=== PATIENT | male | born 1965 | race Caucasian/White ===

== ENCOUNTER 2022-12-09 07:52 | Outpatient (OUT) | payer OTHER, SELFPAY ==
--- NOTE | 2022-12-09 08:02 | XR_ITS ---
The [address] [address] Patient Name: RAMON SPRINGER MRN: [id number] date: 1965 Sex: M Assigned Patient Location: [facility] Current Patient Location: [facility] Accession/Order Number: [id number] Exam Date: 12/09/2022 08:54 Report Date: 12/09/2022 09:17 At the request of: ROSHAN MERAZ Procedure: XR chest 2V EXAM: XR chest 2V HISTORY: PRE OP EXAM COMPARISON: None. TECHNIQUE: PA and lateral views of the chest. FINDINGS: The cardiomediastinal silhouette is normal. No focal consolidation is identified. There is no pneumothorax. No pleural effusion is noted. The osseous structures are intact. XR/XR chest 2V IMPRESSION: No acute cardiopulmonary process. Electronically authenticated by: NATALIA BAKER Date: 12/09/2022 09:17
--- NOTE | 2022-12-09 08:02 | ECG_ITS ---
The [facility] Test Date: 2022-12-09 Pat Name: Bobby Mendoza Department: Room: - Gender: Male Manual Plate Filler: : 1965 Requested By: Order Number: [id number] Reading MD: ADDISON LEÓN Measurements Intervals [place] Rate: 58 P: 19 LA: 159 QRS: 16 QRSD: 86 T: -19 QT: 383 QTc: 378 Interpretive Statements SINUS BRADYCARDIA NONSPECIFIC T-WAVE ABNORMALITY No previous ECG available for comparison Electronically Signed On 12-09-2022 20:27:25 EDT by ADDISON LEÓN
[2022-12-09 09:10] LABS: Anion Gap 10.3; BUN Creatinine Ratio 16.8; Calcium 8.7 mg/dL (8.5-10.1); Carbon Dioxide 29.3 mmol/L (21.0-32.0); Chloride 102 mmol/L (98-107); Estimated GFR (African America >60 (>=60); Estimated GFR (Non-African Ame >60 (>=60); Glucose 99 mg/dL (74-106); Potassium 4.6 mmol/L (3.5-5.1); Sodium 137 mmol/L (136-145)
[2022-12-09 09:13] LABS: Eosinophils Absolute Auto 0.1 10^3/uL (0.0-0.7); Eosinophils Percent Auto 3.3 % (0.9-7.0); Hematocrit 46.6 % (42.0-54.0); Hemoglobin 16.5 g/dL (14.0-18.0); Immature Granulocytes Abs Auto 0.02 10^3/uL (0.00-0.03); Immature Granulocytes Pct Auto 0.5 % (0.0-0.5); Lymphocytes Absolute Auto 0.8 10^3/uL (1.2-3.8); Lymphocytes Percent Auto 20.9 % (20.5-60.0); Mean Corpuscular HGB Conc 35.4 g/dL (29.9-35.2); Mean Corpuscular Hemoglobin 31.1 pg (25.9-34.0); Mean Corpuscular Volume 87.9 fL (80.0-94.0); Mean Platelet Volume 9.9 fL (9.5-13.5); Monocytes Absolute Auto 0.4 10^3/uL (0.3-0.8); Monocytes Percent Auto 10.5 % (1.7-12.0); Neutrophils Absolute Auto 2.5 10^3/uL (1.4-6.5); Neutrophils Percent Auto 63.8 % (43.0-75.0); Platelet Count 196 10^3/uL (150-450); Red Cell Distribution Width 12.8 % (11.0-15.0); White Blood Count 3.9 10^3/uL (4.0-11.0)
[2022-12-09 09:22] LABS: INR 1.01; Partial Thromboplastin Time 25.7 sec (22.3-36.2); Prothrombin Time 10.7 sec (9.0-11.6)
== END 2022-12-09 07:53 | disposition home or self-care (01) ==
LOC: PST 07:57
PROVIDERS: Urology; PCP Family Medicine
DX: Z01.810 Encounter for preprocedural cardiovascular examination (principal); Z01.812 Encounter for preprocedural laboratory examination; Z01.811 Encounter for preprocedural respiratory examination; C61 Malignant neoplasm of prostate
CPT/HCPCS: 71046; 80048; 85025; 85610; 85730; 93005

== ENCOUNTER 2022-12-18 11:15 | Day surgery (SDC) | payer OTHER, SELFPAY ==
[2022-12-09 08:21] VITALS: BP 144/93; PULSE 60; RESP 18; TEMP 36.4; O2SAT 96; BMI 39.2
[2022-12-18] VITALS (8 sets, daily range): BP systolic 110–140; BP diastolic 71–90; PULSE 65–76; RESP 12–20; TEMP 36–36.3; O2SAT 92–95; BMI 38.1
--- NOTE | 2022-12-18 | XR_ITS ---
[place] [id number] Patient Name: RAMON SPRINGER MRN: [id number] date: 1965 Sex: M Assigned Patient Location: [facility] Current Patient Location: [facility] Accession/Order Number: [id number] Exam Date: 12/18/2022 14:00 Report Date: 12/18/2022 15:19 At the request of: ROSHAN MERAZ Procedure: XR pelvis 1-2V EXAMINATION: XR pelvis 1-2V, [id number] HISTORY: PROSTATE SEED IMPLANT COMPARISON: None. FINDINGS/IMPRESSION: Interval placement of brachytherapy seeds in the prostate. Contrast within the bladder obscures the central portion of the pelvis. No ectopic brachytherapy seeds demonstrated. Electronically authenticated by: MADHAVI EDWARDS Date: 12/18/2022 15:19
[2022-12-18] MEDS: LACTATED RINGER'S SOLUTION 1,000 ML 50 ML IV ×2 (11:43→13:20)
[2022-12-18] MEDS: CEFAZOLIN SODIUM/DEXTROSE,ISO 2 GM/50 ML PIGGYBACK IV (12:54)
[2022-12-18] MEDS: IOHEXOL 300 MG/ML - 50 ML BTL 600 MG INJ (13:10)
--- NOTE | 2022-12-18 13:25 | PM.URSON ---
Urology Surgery Operative Note Operative Note Procedure Date: 12/18/22 Time Out Performed: yes Pre-op Diagnosis: Prostate cancer Post-op Diagnosis: same as pre-op Procedures performed: 1. Cystoscopy 2. Brachytherapy seed implantation Anesthesia: GETA (LMA, Dr. Gonzales) Primary Surgeon: Trina Salgado Complications: none Estimated blood loss (mL): 0 Findings: Excellent coverage of brachytherapy within prostate, 21 needles with 73 seeds. Moderate bilobar hypertrophy with elevated bladder neck. Minimal trabeculations. No bladder tumors, lesions or seeds noted. 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 Valdes 07/31/22, initial PSA 4.8, 14% free. After discussion of risks/benefits of management options, he elected to proceed with brachytherapy seed implantation for definitive treatment with Dr. Cline. Risks were discussed including but not limited to bleeding, pain, infection, urinary symptoms including retention, recurrence, and need for additional procedures. Detailed description of Procedure: After informed consent was obtained, the patient was brought to the operating room and transferred onto the operating table in supine position. Sequential compression devices were placed on bilateral lower extremities. The patient received the appropriate dose of preoperative IV antibiotics and general anesthesia LMA was induced. They were positioned in modified dorsolithotomy with the appropriate pressure points padded, prepped and draped in the usual sterile fashion for this procedure. An operative safety timeout was performed confirming the patient's identity and procedure, and all present agreed to proceed. A 16Fr catheter was inserted into the urethra and bladder without difficulty and the bladder was drained. 200mL of dilute contrast was instilled into the bladder and the catheter removed. The scrotum was secured out of the field with Ioban. The implant bracket was brought to the end of the table and the ultrasound probe was inserted per rectum followed by the grid. Patient position was adjusted to match the preoperative simulation images by Dr. Cline and his team. Two stabilizing needles were placed into the prostate via perineum. Spot fluoroscopy was done to ensure position of needles and equipment in relation to the bladder. Next, preloaded needles of iodine 125 seeds were passed transperineal into the prostate under fluoroscopic and ultrasound guidance based on the predetermined locations according to the treatment plan. A total of 21 needles with 73 seeds were placed. Live dosimetry confirmed excellent coverage throughout the gland while avoiding the urethra. No evidence of seeds outside the prostate were seen on fluoroscopy. The ultrasound and implant bracket were then removed. Next a 17Fr cystoscope was inserted per urethra into the bladder. Moderate bilobar prostatic hypertrophy with elevated bladder neck was noted without evidence of bleeding, seeds, or spacers within the prostatic urethra or bladder. There were no bladder tumors, lesions or foreign bodies on mcdaniel cystoscopy. The bladder was filled and the cystoscope removed. The patient tolerated the procedure well without complication. The patient was awakened from anesthesia and sent to PACU in stable condition. Plan: Void prior to dc home. Tamsulosin sent to pharmacy on file prn. Pt knows to call or present to ER should he develop fever, chills, inability to urinate or excessive bleeding. Follow up in 4-6 wks with PVR or sooner if issues arise. Follow up with Dr. Cline in 2 weeks. Other Provider present: Yes (Dr. Randal Cline) Post Operative care instructions: See dc instructions Attending Doc Confirm Attending Attestation: Yes
--- NOTE | 2022-12-18 14:46 | PC.NURSE ---
Voided 350cc clear yellow urine in urinal without difficulty
== END 2022-12-18 15:25 | disposition home or self-care (01) ==
PROVIDERS: PCP Family Medicine; Visit Provider Urology
DX: C61 Malignant neoplasm of prostate (principal); Z79.82 Long term (current) use of aspirin; N40.1 Benign prostatic hyperplasia with lower urinary tract symptoms; Z80.42 Family history of malignant neoplasm of prostate; Z87.891 Personal history of nicotine dependence; E78.5 Hyperlipidemia, unspecified; R35.1 Nocturia; N39.43 Post-void dribbling; R35.0 Frequency of micturition
CPT/HCPCS: 55875; 36415; 72170; 76965; 77290; 77332; 77778; C1715; C2638; C2639; J2704; Q9967